=== PATIENT | male | born 1980 | race African-American/Black ===

== ENCOUNTER 2019-03-18 19:54 | Emergency (ER) | payer OTHER ==
[~2019-03-18] VITALS: Ht 180.3 cm; Wt 75.0 kg
[2019-03-18] MEDS ORDERED: LIDOCAINE HCL/PF 1% 10 MG/ML 5ML VIAL IJ ONE (22:30)
[2019-03-18] MEDS ORDERED: BACITRACIN ZINC OINT UDPKT TOP ONE (22:30)
[2019-03-18] MEDS ORDERED: TETANUS, DIPHTHERIA, PERTUSSIS VAC/PF 0.5ML (>7YR OLD) IM ONE (22:30)
[2019-03-18] MEDS ORDERED: ACETAMINOPHEN 325MG TABLET PO ONE (22:30)
[2019-03-18 23:27] VITALS: BP 121/80
== END 2019-03-18 23:28 | disposition home or self-care (01) ==
LOC: ER 22:08
DX: L03.012 Cellulitis of left finger (principal); F17.210 Nicotine dependence, cigarettes, uncomplicated; F12.90 Cannabis use, unspecified, uncomplicated; Z23 Encounter for immunization
CPT/HCPCS: 10060; 90471; 90715; 99283; A4217; J3490; Z7610

== ENCOUNTER 2021-01-27 18:37 | Emergency (ER) | payer OTHER ==
[~2021-01-27] VITALS: Ht 180.3 cm; Wt 80.0 kg
[2021-01-27 19:21] LABS: BASOPHILS % 0.9 % (0.0-2.0); EOSINOPHILS % 1.6 % (0.0-5.0); HEMATOCRIT. 40.7 % (42.0-52.0); HEMOGLOBIN. 13.5 g/dL (14.0-18.0); LYMPHOCYTES % 13.3 % (20.0-50.0); MEAN CORPUSCULAR HEMOGLOBIN 32.9 pg (28.0-32.0); MEAN CORPUSCULAR VOLUME 98.8 fL (80.0-94.0); MEAN PLATELET VOLUME 9.8 fl (7.4-10.4); MONOCYTES % 4.9 % (2.0-8.0); NEUTROPHILS % 79.3 % (40.0-76.0); PLATELET 154 x1000/uL (130-400); RED BLOOD CELL COUNT 4.12 mill/uL (4.7-6.1); RED CELL DISTRIBUTION WIDTH 14.1 % (11.6-14.6)
[2021-01-27 19:26] LABS: CHLORIDE 104 mEq/L (98-107)
[2021-01-27 19:28] LABS: PROTHROMBIN TIME 10.7 sec (9.6-11.0)
[2021-01-27 19:33] LABS: BETA HYDROXYBUTYRATE 0.9 mMol/L (0.0-0.3)
[2021-01-27] MEDS ORDERED: INSULIN LISPRO 100 UNITS/ML SUBCUT ONE ×3 (20:00→22:00)
[2021-01-27] MEDS ORDERED: SODIUM CHLORIDE 0.9% 1,000 ML IV ONE ×3 (20:00→21:45)
[2021-01-27 20:51] LABS: CLARITY URINE CLEAR (CLEAR); COLOR URINE YELLOW (YELLOW); KETONES URINE 1+ (NEGATIVE); LEUKOCYTE ESTERASE URINE NEGATIVE (NEGATIVE); NITRITE URINE NEGATIVE (NEGATIVE); OCCULT BLOOD URINE NEGATIVE (NEGATIVE); PH URINE 5.5 (4.5-8.0); PROTEIN URINE NEGATIVE (NEGATIVE); UROBILINOGEN URINE 0.2 E.U./dL (0.2-1.0)
[2021-01-27 22:23] VITALS: BP 141/88
== END 2021-01-27 22:24 | disposition home or self-care (01) ==
LOC: ER 18:37
DX: E11.65 Type 2 diabetes mellitus with hyperglycemia (principal); R03.0 Elevated blood-pressure reading, without diagnosis of hypertension; F12.90 Cannabis use, unspecified, uncomplicated; Z79.4 Long term (current) use of insulin
CPT/HCPCS: 36415; 80053; 81003; 82010; 82962; 83690; 85025; 85610; 96360; 96372; 99284; J1815; J7030